=== PATIENT | female | born 1955 | race Caucasian/White ===

== ENCOUNTER 2017-10-21 06:52 | Day surgery (SDC) | payer OTHER ==
[2017-10-21] MEDS ORDERED: LIDOCAINE 2% (SDV) 5 ML INJ (09:35)
[2017-10-21] MEDS ORDERED: PROPOFOL 40 ML (09:35)
== END 2017-10-21 09:45 | disposition home or self-care (01) ==
LOC: GIL 06:52
DX: Z12.11 Encounter for screening for malignant neoplasm of colon (principal); K20.9 Esophagitis, unspecified; K29.70 Gastritis, unspecified, without bleeding; K64.4 Residual hemorrhoidal skin tags
CPT/HCPCS: 43239; 88305; 88312

== ENCOUNTER 2017-12-17 10:40 | Emergency (ER) | payer OTHER ==
[2017-12-17] MEDS: ALBUTEROL 0.083% (NEB) 2.5 MG/3 ML AMP NEB (11:37)
[2017-12-17] MEDS: IPRATROPIUM (NEB) 0.5 MG/2.5 ML AMP NEB (11:37)
== END 2017-12-17 12:31 | disposition home or self-care (01) ==
LOC: FTE 10:40
DX: J20.9 Acute bronchitis, unspecified (principal)
CPT/HCPCS: 94664; 99283-25

== ENCOUNTER 2018-04-16 13:08 | Emergency (ER) | payer OTHER ==
[2018-04-16] MEDS: IPRATROPIUM (NEB) 0.5 MG/2.5 ML AMP HHN (14:06)
[2018-04-16] MEDS: ALBUTEROL 0.083% (NEB) 2.5 MG/3 ML AMP HHN (14:06)
[2018-04-16 14:19] LABS: ADD MAN DIFF? NO
[2018-04-16 14:24] LABS: WHITE BLOOD COUNT 5.7 10^3/ul (4.8-10.8)
[2018-04-16 14:24] LABS: BASOPHILS % 0.4 % (0.0-2.0); EOSINOPHILS # 0.1 10^3/ul (0.0-0.5); EOSINOPHILS % 1.8 % (0.0-7.0); HEMATOCRIT 39.7 % (37.0-47.0); HEMOGLOBIN 12.3 g/dl (12.0-16.0); LYMPHOCYTES # 2.2 10^3/ul (0.8-2.9); LYMPHOCYTES % 39.2 % (15.0-51.0); MEAN CORPUSCULAR HEMOGLOBIN 25.7 pg (29.0-33.0); MEAN CORPUSCULAR VOLUME 83.1 fl (82.0-101.0); MEAN PLATELET VOLUME 10.7 fl (7.4-10.4); MONOCYTE # 0.4 10^3/ul (0.3-0.9); MONOCYTES % 7.6 % (0.0-11.0); NEUTROPHIL # 2.9 10^3/ul (1.6-7.5); NEUTROPHILS % 50.6 % (39.0-77.0); PLATELET COUNT 182 10^3/UL (140-415); RED BLOOD COUNT 4.78 10^6/ul (4.20-5.40); RED CELL DISTRIBUTION WIDTH 14.6 % (11.5-14.5)
[2018-04-16] MEDS: ONDANSETRON (ODT) 4 MG TAB ODT (14:29)
[2018-04-16] MEDS: HYDROCODONE/APAP (5/325) TAB PO (14:29)
[2018-04-16 14:41] LABS: ALANINE AMINOTRANSFERASE 28 IU/L (13-69); ALBUMIN 4.1 g/dl (3.3-4.9); ALBUMIN/GLOBULIN RATIO 1.32; ALKALINE PHOSPHATASE 59 IU/L (42-121); ANION GAP 5 (5-13); ASPARTATE AMINO TRANSFERASE 20 IU/L (15-46); BILIRUBIN,INDIRECT 0.1 mg/dl (0-1.1); BILIRUBIN,TOTAL 0.1 mg/dl (0.2-1.3); BLOOD UREA NITROGEN 9 mg/dl (7-20); CALCIUM 9.8 mg/dl (8.4-10.2); CARBON DIOXIDE 29 mmol/L (21-31); CHLORIDE 108 mmol/L (97-110); CREATININE 0.67 mg/dl (0.44-1.00); Estimated GFR > 60 mL/min (>60); GLUCOSE 110 mg/dl (70-220); POTASSIUM 4.2 mmol/L (3.5-5.1); SODIUM 142 mmol/L (135-144); TOTAL PROTEIN 7.2 g/dl (6.1-8.1)
[2018-04-16 14:52] LABS: TROPONIN-I < 0.012 ng/ml (0.000-0.120)
[2018-04-16] MEDS: predniSONE 20 MG TAB PO (15:34)
== END 2018-04-16 15:39 | disposition home or self-care (01) ==
LOC: FTE 13:08
DX: J45.901 Unspecified asthma with (acute) exacerbation (principal)
CPT/HCPCS: 36415; 71045; 80053; 84484; 85025; 93005; 94664; 99285-25

== ENCOUNTER 2018-08-21 08:46 | Emergency (ER) | payer OTHER ==
[2018-08-21] MEDS: KETOROLAC 30 MG INJ IM (09:39)
== END 2018-08-21 09:59 | disposition home or self-care (01) ==
LOC: FTE 09:59
DX: M25.511 Pain in right shoulder (principal); M62.838 Other muscle spasm
CPT/HCPCS: 96372; 99284-25; J1885